=== PATIENT | female | born 1960 | race Caucasian/White ===

== ENCOUNTER 2020-07-02 16:03 | Inpatient (IN) | payer OTHER ==
[~2020-07-02] VITALS: Ht 160 cm; Wt 109.1 kg
[2020-07-02] MEDS ORDERED: METO25TA35 PO (16:21)
[2020-07-02] MEDS ORDERED: ESTRADIOL (16:21)
[2020-07-02] MEDS ORDERED: AMIODARONE 450 MG in DEXTROSE 5% 241 ML IV PRN (16:30)
[2020-07-02] MEDS ORDERED: FILTER 1.2 MICRON IV PRN (16:30)
[2020-07-02] MEDS ORDERED: MORPHINE SULFATE 4 MG/ML, 1ML IVPush STA ×2 (16:41→17:26)
[2020-07-02] MEDS ORDERED: MORPHINE SULFATE 4 MG/ML, 1ML ONE (16:46)
[2020-07-02] MEDS ORDERED: morphine SULFATE 10 MG/ML, 1ML IVPush PRN (17:30)
[2020-07-02] MEDS ORDERED: MORPHINE SULFATE 4 MG/ML, 1ML IVPush ONE (18:00)
[2020-07-02] MEDS ORDERED: PHARMACY INSTRUCTION MC PRN (18:00)
[2020-07-02] MEDS ORDERED: FILTER 0.22 MICRON IV PRN (18:00)
[2020-07-02] MEDS: SODIUM CHLORIDE 0.9% 1,000 ML IV SCH (20:47)
[2020-07-02 20:55] VITALS: BP 133/85
[2020-07-02] MEDS: METOPROLOL TARTRATE 25 MG TAB PO SCH (21:10)
[2020-07-03 03:28] VITALS: BP 122/81
[2020-07-03] MEDS ORDERED: ESTR1POW13 PO (04:05)
[2020-07-03 04:07] VITALS: BP 122/81
[2020-07-03 05:05] LABS: BASOPHILS % (AUTO) 1 % (0-1); EOSINOPHILS % (AUTO) 6 % (1-7); LYMPHOCYTES % (AUTO) 20 % (22-44); MEAN CORPUSCULAR HEMOGLOBIN 29.8 pg (27.0-34.8); MEAN CORPUSCULAR HGB CONC 32.8 g/dL (32.4-35.8); MEAN PLATELET VOLUME 7.4 fL (7.4-10.4); MONOCYTES % (AUTO) 8 % (2-9); NEUTROPHILS % (AUTO) 65 % (42-75); PLATELET COUNT 254 x10^3/uL (130-400); RED BLOOD COUNT 4.32 x10^6/uL (3.82-5.3); RED CELL DISTRIBUTION WIDTH 13.6 % (9.6-15.2)
[2020-07-03 05:09] LABS: ANION GAP 6 mmol/L (5-15); CALCIUM 8.1 mg/dL (8.5-10.1); CHLORIDE 114 mmol/L (98-107); CREATININE 0.72 mg/dL (0.55-1.02)
[2020-07-03 05:20] LABS: MD NO
[2020-07-03 07:12] VITALS: BP 111/72
[2020-07-03] MEDS: METOPROLOL TARTRATE 25 MG TAB PO SCH ×2 (08:11→20:41)
[2020-07-03] MEDS: SODIUM CHLORIDE 0.9% 1,000 ML IV SCH ×2 (10:14→17:59)
[2020-07-03 12:53] VITALS: BP 119/83
[2020-07-03] MEDS ORDERED: AMIODARONE 450 MG in DEXTROSE 5% 241 ML IV PRN (16:30)
[2020-07-03] MEDS: ACETAMINOPHEN 325 MG TABLET PO PRN (17:59)
[2020-07-03 19:55] VITALS: BP 105/70
[2020-07-03 23:56] VITALS: BP 96/62
[2020-07-04] MEDS ORDERED: MELATONIN 5 MG TABLET PO PRN
[2020-07-04] MEDS: SODIUM CHLORIDE 0.9% 1,000 ML IV SCH (04:10)
[2020-07-04 05:35] LABS: ANION GAP 7 mmol/L (5-15); CALCIUM 8.1 mg/dL (8.5-10.1); CHLORIDE 113 mmol/L (98-107); CREATININE 0.66 mg/dL (0.55-1.02)
[2020-07-04 07:35] VITALS: BP 104/69
[2020-07-04] MEDS: ACETAMINOPHEN 325 MG TABLET PO PRN (08:22)
[2020-07-04] MEDS: METOPROLOL TARTRATE 25 MG TAB PO SCH (08:22)
[2020-07-04 08:23] VITALS: BP 133/78
[2020-07-04] MEDS ORDERED: MAGN400T9 PO (12:59)
[2020-07-05] MEDS ORDERED: MAGNESIUM OXIDE 400 MG TABLET PO SCH (09:00)
== END 2020-07-04 13:26 | disposition home or self-care (01) | DRG 309 ==
LOC: ED 17:42 → EDIP 19:26 → EDBD 19:26 → 5SO 20:45 → DCLOUNGE 07-04 13:08
PROVIDERS: ADMIT Internal Medicine; ATTEND Internal Medicine
PROC: 5A2204Z Restoration of Cardiac Rhythm, Single (ICD-10-PCS; principal; 2020-07-02)
DX: I47.2 Ventricular tachycardia (principal); Z68.41 Body mass index [BMI] 40.0-44.9, adult; E66.9 Obesity, unspecified; E78.5 Hyperlipidemia, unspecified; E87.6 Hypokalemia; I49.3 Ventricular premature depolarization; Z90.710 Acquired absence of both cervix and uterus; Z90.49 Acquired absence of other specified parts of digestive tract
CPT/HCPCS: 36415; 80048; 83735; 84132; 84443; 85025; 93005; 93306; 96374; 99291; G0378; J7060; J0282; J2270; J7030

== ENCOUNTER 2020-08-01 09:14 | Observation (INO) | payer OTHER ==
[~2020-08-01] VITALS: Ht 160 cm; Wt 100.5 kg
[~2020-08-01 09:14] MED LIST: ESTR1POW13 PO; ESTRADIOL; MAGN400T9 PO; METO25TA35 PO
[2020-08-01] MEDS ORDERED: SODIUM CHLORIDE 0.9% 1,000 ML IV SCH (10:00)
[2020-08-01 10:12] LABS: BASOPHILS % (AUTO) 1 % (0-1); EOSINOPHILS % (AUTO) 5 % (1-7); LYMPHOCYTES % (AUTO) 25 % (22-44); MEAN CORPUSCULAR HEMOGLOBIN 30.2 pg (27.0-34.8); MEAN CORPUSCULAR HGB CONC 33.7 g/dL (32.4-35.8); MEAN PLATELET VOLUME 7.1 fL (7.4-10.4); MONOCYTES % (AUTO) 8 % (2-9); NEUTROPHILS % (AUTO) 62 % (42-75); PLATELET COUNT 254 x10^3/uL (130-400); RED BLOOD COUNT 4.53 x10^6/uL (3.82-5.3); RED CELL DISTRIBUTION WIDTH 13.8 % (9.6-15.2)
[2020-08-01 10:13] LABS: MD NO
[2020-08-01 10:20] LABS: ANION GAP 10 mmol/L (5-15); CALCIUM 8.3 mg/dL (8.5-10.1); CHLORIDE 109 mmol/L (98-107)
[2020-08-01] MEDS: PLEASE ENTER HEIGHT AND WEIGHT MC SCH ×2 (11:30→19:30)
[2020-08-01] MEDS ORDERED: FENTANYL PF 100 MCG/2ML ONE ×2 (11:51→13:11)
[2020-08-01] MEDS ORDERED: MIDAZOLAM 1 MG/ML, 2ML ONE ×2 (11:51→13:11)
[2020-08-01] MEDS ORDERED: LIDOCAINE 1%, 20ML ONE (11:52)
[2020-08-01] MEDS ORDERED: ISOPROTERENOL 0.2MG/ML, 5ML ONE (11:52)
[2020-08-01] MEDS ORDERED: ADENOSINE 6 MG/2 ML ONE (11:52)
[2020-08-01] MEDS ORDERED: LIDOCAINE 2%, 20ML ONE (13:12)
[2020-08-01] MEDS ORDERED: FENTANYL PF 250 MCG/5ML ONE (13:34)
[2020-08-01] MEDS ORDERED: MIDAZOLAM 1 MG/ML, 5ML ONE (13:34)
[2020-08-01] MEDS: ACETAMINOPHEN 325 MG TABLET PO PRN (18:09)
[2020-08-01] MEDS: METOPROLOL TARTRATE 25 MG TAB PO SCH (18:09)
[2020-08-01] MEDS ORDERED: OXYcodone IR 5MG TABLET PO PRN (18:30)
[2020-08-01] MEDS ORDERED: LORazepam 0.5MG TABLET PO PRN (18:30)
[2020-08-01 20:00] VITALS: BP 125/86
[2020-08-01] MEDS: MAGNESIUM OXIDE 400 MG TABLET PO SCH (20:41)
[2020-08-02 01:50] VITALS: BP 128/85
[2020-08-02] MEDS: PLEASE ENTER HEIGHT AND WEIGHT MC SCH ×2 (03:03→09:11)
[2020-08-02 05:02] VITALS: BP 111/78
[2020-08-02] MEDS: METOPROLOL TARTRATE 25 MG TAB PO SCH (05:03)
[2020-08-02] MEDS: ACETAMINOPHEN 325 MG TABLET PO PRN (05:29)
[2020-08-02 07:37] VITALS: BP 115/77
[2020-08-02] MEDS ORDERED: ACET325T26 PO (08:46)
[2020-08-02] MEDS: MAGNESIUM OXIDE 400 MG TABLET PO SCH (09:10)
== END 2020-08-02 12:15 | disposition home or self-care (01) ==
LOC: CACL 09:14 → 5SO 15:42 → CACL 15:42 → 5SO 16:15 → DCLOUNGE 08-02 12:08
PROVIDERS: ADMIT Internal Medicine Cardiovascular Disease; ATTEND Internal Medicine Cardiovascular Disease
DX: I47.2 Ventricular tachycardia (principal); I49.3 Ventricular premature depolarization; F10.10 Alcohol abuse, uncomplicated; Z79.899 Other long term (current) drug therapy; Z87.891 Personal history of nicotine dependence
CPT/HCPCS: 36415; 71046; 80048; 85025; 93306; 93623; 93654; 93662; 99156; 99157; C1730; C1732; C1759; C1766; C1894; C2630; G0378; J2250; J3010; J3490; Q9967; 93566; J0153